=== PATIENT | female | born 2000 | race Caucasian/White ===

== ENCOUNTER 2024-03-30 22:36 | Emergency (ER) | payer BC, MEDICAID | END 2024-03-30 23:59 | disposition home or self-care (01) | LOC: FB.ED 22:36 | DX: S50.12XA Contusion of left forearm, initial encounter (principal); S70.01XA Contusion of right hip, initial encounter; S70.11XA Contusion of right thigh, initial encounter; S80.01XA Contusion of right knee, initial encounter; F17.290 Nicotine dependence, other tobacco product, uncomplicated; W01.0XXA Fall on same level from slipping, tripping and stumbling without subsequent striking against object, initial encounter | CPT/HCPCS: 73090-LT; 73502-RT; 73562-RT; 99283 ==

== ENCOUNTER 2024-04-28 21:01 | Emergency (ER) | payer MEDICARE, MEDICAID ==
[2024-04-28] MEDS: Ibuprofen 400 MG Tab PO ONE (21:21)
== END 2024-04-29 00:05 | disposition home or self-care (01) ==
LOC: FB.ED 21:01
DX: S92.901A Unspecified fracture of right foot, initial encounter for closed fracture (principal); W19.XXXA Unspecified fall, initial encounter
CPT/HCPCS: 73610; 73700; 99284; A9270

== ENCOUNTER 2024-07-11 02:25 | Emergency (ER) | payer MEDICARE, MEDICAID ==
[2024-07-11 02:50] LABS: BILIRUBIN,URINE NEGATIVE (NEGATIVE); GLUCOSE,URINE NORMAL (NORMAL); KETONES,URINE NEGATIVE (NEGATIVE); LEUKOCYTE ESTERASE,URINE NEGATIVE (NEGATIVE); NITRITE,URINE NEGATIVE (NEGATIVE); OCCULT BLOOD,URINE NEGATIVE (NEGATIVE); PROTEIN,URINE NEGATIVE (NEGATIVE); UROBILINOGEN,URINE NORMAL (NEGATIVE)
[2024-07-11 02:52] LABS: APPEARANCE,URINE SLIGHTLY CLOUDY (CLEAR); COLOR,URINE YELLOW (YELLOW)
[2024-07-11 03:01] LABS: BACTERIA,URINE FEW (NS); RBC,URINE 0-5 (0-5); SQUAMOUS EPITHELIAL CELLS,UR MODERATE (NS,R,O); WBC,URINE 0-5 (0-5)
[2024-07-11] MEDS: Sulfamethoxazole/Trimethoprim 800-160 MG Tab PO ONE (03:12)
== END 2024-07-11 03:34 | disposition home or self-care (01) ==
LOC: FB.ED 02:25
DX: N39.0 Urinary tract infection, site not specified (principal); Z87.891 Personal history of nicotine dependence
CPT/HCPCS: 81001; 99283; 99284; A9270

== ENCOUNTER 2024-10-23 19:54 | Emergency (ER) | payer MEDICARE, MEDICAID ==
[2024-10-23 21:03] LABS: BASOPHILS PERCENT AUTO 0.4 % (0.2-1.5); EOSINOPHILS ABSOLUTE AUTO 0.2 x10-3/uL (0.0-0.8); EOSINOPHILS PERCENT AUTO 1.8 % (0.6-8.1); HEMATOCRIT 42.5 % (34.2-48.2); HEMOGLOBIN 14.2 g/dL (11.4-15.5); LYMPHOCYTES ABSOLUTE AUTO 3.1 x10-3/uL (1.0-4.4); LYMPHOCYTES PERCENT AUTO 27.9 % (18.4-52.1); MEAN CORPUSCULAR HEMOGLOBIN 28.9 pg (23.9-33.9); MEAN CORPUSCULAR HGB CONC 33.4 g/dL (31.9-34.8); MEAN CORPUSCULAR VOLUME 86.5 fL (76.7-100.5); MEAN PLATELET VOLUME 8.2 fL (7.1-12.4); MONOCYTES ABSOLUTE AUTO 0.5 x10-3/uL (0.3-1.0); MONOCYTES PERCENT AUTO 4.2 % (4.4-15.7); NEUTROPHILS ABSOLUTE AUTO 7.3 x10-3/uL (1.5-6.3); NEUTROPHILS PERCENT AUTO 65.7 % (30.8-76.2); PLATELET COUNT,PLT 285 x10(3)uL (151-488); RED BLOOD CELL COUNT 4.92 x10(6)uL (3.60-5.20); RED CELL DISTRIBUTION WIDTH 13.4 % (12.3-16.5)
[2024-10-23 21:06] LABS: BLOOD UREA NITROGEN,BUN 11 mg/dL (7-18); BUN/CREATININE RATIO 13.8 (9-20); CALCIUM 8.7 mg/dL (8.6-10.2); CARBON DIOXIDE,CO2 27 mmol/L (21-32); CHLORIDE,CL 104 mmol/L (100-110); CREATININE 0.8 mg/dL (0.55-1.02); ESTIMATED GFR 107 mL/min (>60); GLUCOSE RANDOM 103 mg/dL (80-116); POTASSIUM,K 3.5 mmol/L (3.5-5.3); SODIUM,NA 141 mmol/L (135-145)
[2024-10-23 21:13] LABS: A/G RATIO 0.9; ALANINE AMINOTRANSFERASE,ALT 24 U/L (12-36); ALBUMIN 3.7 g/dL (3.5-5.2); ALKALINE PHOSPHATASE 99 IU/L (56-112); ASPARTATE AMNIOTRANSFERASE,AST 16 IU/L (5-25); BILIRUBIN TOTAL 0.3 mg/dL (0.1-1.3); PROTEIN TOTAL,TP 7.8 g/dL (6.0-8.0)
[2024-10-23 21:33] LABS: APPEARANCE,URINE CLEAR (CLEAR); BILIRUBIN,URINE NEGATIVE (NEGATIVE); COLOR,URINE YELLOW (YELLOW); EPITHELIAL CELLS,URINE FEW; GLUCOSE,URINE NORMAL (NORMAL); KETONES,URINE NEGATIVE (NEGATIVE); LEUKOCYTE ESTERASE,URINE NEGATIVE (NEGATIVE); NITRITE,URINE NEGATIVE (NEGATIVE); OCCULT BLOOD,URINE MODERATE (NEGATIVE); PROTEIN,URINE NEGATIVE (NEGATIVE); UROBILINOGEN,URINE NORMAL (NEGATIVE); WBC,URINE 0-5 (0-5)
[2024-10-23 21:34] LABS: BACTERIA,URINE FEW (NS)
== END 2024-10-23 22:42 | disposition home or self-care (01) ==
LOC: FB.ED 19:54
DX: O20.0 Threatened abortion (principal); O99.891 Other specified diseases and conditions complicating pregnancy; R82.71 Bacteriuria; Z3A.01 Less than 8 weeks gestation of pregnancy; Z88.0 Allergy status to penicillin; Z88.8 Allergy status to other drugs, medicaments and biological substances
CPT/HCPCS: 36415; 80053; 81001; 84702; 85025; 99284

== ENCOUNTER 2024-11-01 11:13 | Emergency (ER) | payer MEDICARE, MEDICAID ==
[2024-11-01 11:29] LABS: BASOPHILS PERCENT AUTO 0.4 % (0.2-1.5); EOSINOPHILS ABSOLUTE AUTO 0.2 x10-3/uL (0.0-0.8); EOSINOPHILS PERCENT AUTO 2.1 % (0.6-8.1); HEMATOCRIT 42.7 % (34.2-48.2); HEMOGLOBIN 14.6 g/dL (11.4-15.5); LYMPHOCYTES ABSOLUTE AUTO 2.5 x10-3/uL (1.0-4.4); LYMPHOCYTES PERCENT AUTO 22.8 % (18.4-52.1); MEAN CORPUSCULAR HEMOGLOBIN 29.5 pg (23.9-33.9); MEAN CORPUSCULAR HGB CONC 34.1 g/dL (31.9-34.8); MEAN CORPUSCULAR VOLUME 86.5 fL (76.7-100.5); MEAN PLATELET VOLUME 8.6 fL (7.1-12.4); MONOCYTES ABSOLUTE AUTO 0.6 x10-3/uL (0.3-1.0); MONOCYTES PERCENT AUTO 5.4 % (4.4-15.7); NEUTROPHILS ABSOLUTE AUTO 7.5 x10-3/uL (1.5-6.3); NEUTROPHILS PERCENT AUTO 69.3 % (30.8-76.2); PLATELET COUNT,PLT 279 x10(3)uL (151-488); RED BLOOD CELL COUNT 4.94 x10(6)uL (3.60-5.20); RED CELL DISTRIBUTION WIDTH 13.3 % (12.3-16.5); WHITE BLOOD CELL COUNT,WBC 10.8 x10-3/uL (3.0-10.3)
[2024-11-01 11:32] LABS: BLOOD UREA NITROGEN,BUN 10 mg/dL (7-18); BUN/CREATININE RATIO 12.5 (9-20); CARBON DIOXIDE,CO2 26 mmol/L (21-32); CHLORIDE,CL 102 mmol/L (100-110); CREATININE 0.8 mg/dL (0.55-1.02); ESTIMATED GFR 107 mL/min (>60); GLUCOSE RANDOM 95 mg/dL (80-116); SODIUM,NA 139 mmol/L (135-145)
[2024-11-01 11:37] LABS: A/G RATIO 0.9; ALANINE AMINOTRANSFERASE,ALT 20 U/L (12-36); ALBUMIN 3.9 g/dL (3.5-5.2); ALKALINE PHOSPHATASE 99 IU/L (56-112); ASPARTATE AMNIOTRANSFERASE,AST 14 IU/L (5-25); BILIRUBIN TOTAL 0.7 mg/dL (0.1-1.3); PROTEIN TOTAL,TP 8.2 g/dL (6.0-8.0)
== END 2024-11-01 12:40 | disposition home or self-care (01) ==
LOC: FB.ED 11:13
DX: O20.0 Threatened abortion (principal); S86.912A Strain of unspecified muscle(s) and tendon(s) at lower leg level, left leg, initial encounter; Z88.1 Allergy status to other antibiotic agents; Z88.8 Allergy status to other drugs, medicaments and biological substances; Z79.899 Other long term (current) drug therapy; Z3A.08 8 weeks gestation of pregnancy; W19.XXXA Unspecified fall, initial encounter; Y93.9 Activity, unspecified
CPT/HCPCS: 73562-LT; 80053; 84702; 85025; 86140; 99284

== ENCOUNTER 2024-11-01 21:19 | Emergency (ER) | payer MEDICARE, MEDICAID ==
[2024-11-01] MEDS: Ketorolac 30 MG/ML SDV IM ONE (21:58)
[2024-11-01] MEDS: hydrOXYzine HCl 50 MG/ML SDV IM ONE (21:59)
== END 2024-11-01 22:58 | disposition home or self-care (01) ==
LOC: FB.ED 21:19
DX: O20.0 Threatened abortion (principal); Z88.1 Allergy status to other antibiotic agents; Z88.8 Allergy status to other drugs, medicaments and biological substances; Z3A.00 Weeks of gestation of pregnancy not specified
CPT/HCPCS: 96372; 99284; J1885; J3410

== ENCOUNTER 2024-11-02 16:43 | Emergency (ER) | payer MEDICARE, MEDICAID ==
[2024-11-02] MEDS: Sodium Chloride 0.9% 10 ML Syringe FLUSH PRN (17:15)
[2024-11-02] MEDS: LORazepam 2 MG/ML SDV IVPUSH ONE (17:26)
[2024-11-02] MEDS: OLANZapine 5 MG Tab PO ONE (17:26)
[2024-11-02] MEDS: Sodium Chloride 0.9% 1,000 ML IV ONE (17:26)
== END 2024-11-02 18:56 | disposition home or self-care (01) ==
LOC: FB.ED 16:43
DX: O03.4 Incomplete spontaneous abortion without complication (principal); F31.12 Bipolar disorder, current episode manic without psychotic features, moderate; F41.8 Other specified anxiety disorders; Z88.0 Allergy status to penicillin; Z88.8 Allergy status to other drugs, medicaments and biological substances; Z79.51 Long term (current) use of inhaled steroids; Z79.899 Other long term (current) drug therapy
CPT/HCPCS: 96361; 96374; 99284; 99284-25; A9270-GY; J2060; J7030

== ENCOUNTER 2024-11-30 20:21 | Emergency (ER) | payer MEDICARE, MEDICAID ==
[2024-11-30 21:32] LABS: BASOPHILS PERCENT AUTO 0.5 % (0.2-1.5); EOSINOPHILS ABSOLUTE AUTO 0.2 x10-3/uL (0.0-0.8); EOSINOPHILS PERCENT AUTO 2.1 % (0.6-8.1); HEMATOCRIT 42.4 % (34.2-48.2); HEMOGLOBIN 14.3 g/dL (11.4-15.5); LYMPHOCYTES ABSOLUTE AUTO 3.6 x10-3/uL (1.0-4.4); LYMPHOCYTES PERCENT AUTO 36.3 % (18.4-52.1); MEAN CORPUSCULAR HEMOGLOBIN 29.2 pg (23.9-33.9); MEAN CORPUSCULAR HGB CONC 33.8 g/dL (31.9-34.8); MEAN CORPUSCULAR VOLUME 86.3 fL (76.7-100.5); MEAN PLATELET VOLUME 8.7 fL (7.1-12.4); MONOCYTES ABSOLUTE AUTO 0.6 x10-3/uL (0.3-1.0); MONOCYTES PERCENT AUTO 6.4 % (4.4-15.7); NEUTROPHILS ABSOLUTE AUTO 5.4 x10-3/uL (1.5-6.3); NEUTROPHILS PERCENT AUTO 54.7 % (30.8-76.2); PLATELET COUNT,PLT 283 x10(3)uL (151-488); RED BLOOD CELL COUNT 4.92 x10(6)uL (3.60-5.20); WHITE BLOOD CELL COUNT,WBC 9.9 x10-3/uL (3.0-10.3)
[2024-11-30 21:33] LABS: BILIRUBIN,URINE NEGATIVE (NEGATIVE); GLUCOSE,URINE NORMAL (NORMAL); KETONES,URINE NEGATIVE (NEGATIVE); LEUKOCYTE ESTERASE,URINE NEGATIVE (NEGATIVE); NITRITE,URINE NEGATIVE (NEGATIVE); OCCULT BLOOD,URINE NEGATIVE (NEGATIVE); PROTEIN,URINE NEGATIVE (NEGATIVE); UROBILINOGEN,URINE NORMAL (NEGATIVE)
[2024-11-30 21:35] LABS: APPEARANCE,URINE CLEAR (CLEAR); COLOR,URINE YELLOW (YELLOW)
[2024-11-30 21:35] LABS: BLOOD UREA NITROGEN,BUN 11 mg/dL (7-18); CALCIUM 8.9 mg/dL (8.6-10.2); CARBON DIOXIDE,CO2 30 mmol/L (21-32); CHLORIDE,CL 105 mmol/L (100-110); EST CRCL DRUG DOSING (CG) 95.42 mL/min; ESTIMATED GFR 82 mL/min (>60); GLUCOSE RANDOM 83 mg/dL (80-116); POTASSIUM,K 3.7 mmol/L (3.5-5.3); SODIUM,NA 143 mmol/L (135-145)
[2024-11-30 21:42] LABS: AMPHETAMINES SCREEN, URINE NEGATIVE (NEGATIVE); BARBITURATE SCREEN,URINE NEGATIVE (NEGATIVE); BENZODIAZEPINES SCREEN,URINE NEGATIVE (NEGATIVE); BUPRENORPHINE SCREEN,URINE NEGATIVE (NEGATIVE); METHADONE SCREEN, URINE NEGATIVE (NEGATIVE); METHAMPHETAMINE SCREEN, URINE NEGATIVE (NEGATIVE); OXYCODONE SCREEN,URINE NEGATIVE (NEGATIVE); THC SCREEN,URINE NEGATIVE (NEGATIVE)
[2024-11-30 21:48] LABS: A/G RATIO 1.1; ALANINE AMINOTRANSFERASE,ALT 20 U/L (12-36); ALKALINE PHOSPHATASE 100 IU/L (56-112); ASPARTATE AMNIOTRANSFERASE,AST 15 IU/L (5-25); BILIRUBIN TOTAL 0.3 mg/dL (0.1-1.3); ETHANOL BLOOD MEDICAL < 0.03 % (<0.03); PROTEIN TOTAL,TP 7.8 g/dL (6.0-8.0); SALICYLATE 1.1 mg/dL (<2.8)
[2024-11-30 22:08] LABS: ACETAMINOPHEN < 2 ug/mL (<2)
== END 2024-12-01 00:35 ==
LOC: FB.ED 20:21
DX: F31.9 Bipolar disorder, unspecified (principal); F30.9 Manic episode, unspecified; R45.88 Nonsuicidal self-harm; Z88.1 Allergy status to other antibiotic agents; Z88.8 Allergy status to other drugs, medicaments and biological substances; Z79.899 Other long term (current) drug therapy
CPT/HCPCS: 36415; 80053; 80143; 80179; 80307; 81003; 81025; 84443; 85025; 87426-QW; 99285

== ENCOUNTER 2024-12-07 20:32 | Emergency (ER) | payer MEDICARE, MEDICAID | END 2024-12-07 21:57 | disposition home or self-care (01) | LOC: FB.ED 20:32 | DX: B09 Unspecified viral infection characterized by skin and mucous membrane lesions (principal); F41.0 Panic disorder [episodic paroxysmal anxiety]; Z88.1 Allergy status to other antibiotic agents; Z88.8 Allergy status to other drugs, medicaments and biological substances; Z79.51 Long term (current) use of inhaled steroids; Z79.899 Other long term (current) drug therapy | CPT/HCPCS: 87651; 99283; 99284 ==

== ENCOUNTER 2025-01-16 13:39 | Emergency (ER) | payer MEDICARE, MEDICAID ==
[2025-01-16] MEDS ORDERED: predniSONE 20 MG Tab PO ONE (13:40)
[2025-01-16] MEDS: Albuterol/Ipratropium 3.0-0.5 MG/3 ML Neb Soln NEB ONE (14:04)
== END 2025-01-16 14:30 | disposition home or self-care (01) ==
LOC: FB.ED 13:39
DX: J45.901 Unspecified asthma with (acute) exacerbation (principal); Z88.1 Allergy status to other antibiotic agents; Z88.8 Allergy status to other drugs, medicaments and biological substances; Z79.899 Other long term (current) drug therapy
CPT/HCPCS: 94640; 99284; A9270; J7512

== ENCOUNTER 2025-05-08 17:56 | Emergency (ER) | payer MEDICARE, MEDICAID ==
[2025-05-08] MEDS ORDERED: Sodium Chloride 0.9% 10 ML Syringe FLUSH PRN (18:03)
[2025-05-08 18:30] LABS: BASOPHILS ABSOLUTE AUTO 0.1 x10-3/uL (0.0-0.1); BASOPHILS PERCENT AUTO 0.5 % (0.2-1.5); EOSINOPHILS ABSOLUTE AUTO 0.1 x10-3/uL (0.0-0.8); EOSINOPHILS PERCENT AUTO 0.8 % (0.6-8.1); LYMPHOCYTES ABSOLUTE AUTO 2.9 x10-3/uL (1.0-4.4); LYMPHOCYTES PERCENT AUTO 21.0 % (18.4-52.1); MEAN PLATELET VOLUME 9.0 fL (7.1-12.4); MONOCYTES ABSOLUTE AUTO 0.7 x10-3/uL (0.3-1.0); MONOCYTES PERCENT AUTO 4.9 % (4.4-15.7); NEUTROPHILS ABSOLUTE AUTO 9.9 x10-3/uL (1.5-6.3); NEUTROPHILS PERCENT AUTO 72.8 % (30.8-76.2); PLATELET COUNT,PLT 214 x10(3)uL (151-488); RED BLOOD CELL COUNT 4.63 x10(6)uL (3.60-5.20); RED CELL DISTRIBUTION WIDTH 13.0 % (12.3-16.5); WHITE BLOOD CELL COUNT,WBC 13.6 x10-3/uL (3.0-10.3)
[2025-05-08 18:32] LABS: BLOOD UREA NITROGEN,BUN 6 mg/dL (7-18); CARBON DIOXIDE,CO2 26 mmol/L (21-32); CHLORIDE,CL 104 mmol/L (100-110); CREATININE 0.7 mg/dL (0.55-1.02); ESTIMATED GFR 125 mL/min (>60); GLUCOSE RANDOM 78 mg/dL (80-116); POTASSIUM,K 3.5 mmol/L (3.5-5.3); SODIUM,NA 136 mmol/L (135-145)
[2025-05-08 18:38] LABS: A/G RATIO 0.9; ALANINE AMINOTRANSFERASE,ALT 14 U/L (12-36); ASPARTATE AMNIOTRANSFERASE,AST 14 IU/L (5-25); BILIRUBIN TOTAL 0.2 mg/dL (0.1-1.3); PROTEIN TOTAL,TP 7.0 g/dL (6.0-8.0)
== END 2025-05-08 19:40 | disposition home or self-care (01) ==
LOC: FB.ED 17:56
DX: O99.891 Other specified diseases and conditions complicating pregnancy (principal); R10.31 Right lower quadrant pain; Z88.0 Allergy status to penicillin; Z88.8 Allergy status to other drugs, medicaments and biological substances; Z79.899 Other long term (current) drug therapy; Z3A.09 9 weeks gestation of pregnancy
CPT/HCPCS: 80053; 85025; 86140; 96360; 99284-25; J7030

== ENCOUNTER 2025-05-09 17:04 | Emergency (ER) | payer MEDICARE, MEDICAID ==
[2025-05-09 19:50] LABS: GLUCOSE,URINE NORMAL (NORMAL); OCCULT BLOOD,URINE NEGATIVE (NEGATIVE)
[2025-05-09 20:02] LABS: APPEARANCE,URINE CLEAR (CLEAR)
== END 2025-05-09 21:03 | disposition home or self-care (01) ==
LOC: FB.ED 17:04
DX: O99.891 Other specified diseases and conditions complicating pregnancy (principal); R10.31 Right lower quadrant pain; Z88.0 Allergy status to penicillin; Z88.8 Allergy status to other drugs, medicaments and biological substances; Z3A.00 Weeks of gestation of pregnancy not specified
CPT/HCPCS: 81003; 99284